=== PATIENT | male | born 1990 | race Caucasian/White ===

== ENCOUNTER 2019-03-21 18:03 | Emergency (ER) | payer SELFPAY ==
[2019-03-21 18:36] LABS: Absolute Lymphocytes (CBC) 1.6 K/uL (0.7-4.9); Basophils % 0.4 % (0-1.3); Hematocrit 43.6 % (39.6-49.0); Lymphocytes % 24.6 % (15.3-44.8); MPV 8.8 fL (7.6-11.3); RBC Red Blood Cell Count 5.39 M/uL (4.33-5.43)
[2019-03-21 18:53] LABS: Albumin 4.2 g/dL (3.4-5.0); Bilirubin Direct 0.2 mg/dL (0-0.2); Bilirubin Total 0.8 mg/dL (0.2-1.0); Potassium 3.7 mmol/L (3.5-5.1); Protein, Total 7.8 g/dL (6.4-8.2)
[2019-03-21 18:54] LABS: Protime INR 1.09
[2019-03-21] MEDS ORDERED: NA CHLORIDE 0.9% 1,000 ML ONE (19:13)
--- NOTE | 2019-03-21 19:25 | RAD REPORT ---
EXAM DESCRIPTION: CT - Abdomen Pelvis W Contrast - 03/21/2019 7:06 pm CLINICAL HISTORY: ABD PAIN, hematemesis, prior cholecystectomy COMPARISON: None. TECHNIQUE: Biphasic, helical CT imaging of the abdomen and pelvis was performed following 100 ml non -ionic IV contrast. No oral contrast administered. All CT scans are performed using dose optimization technique as appropriate and may include automated exposure control or mA/KV adjustment according to patient size. FINDINGS: No suspicious findings in the lung bases. The liver, spleen, and pancreas show no suspicious findings. No biliary tree dilatation. History aly cated prior cholecystectomy. There is a contracted gallbladder at the gallbladder fossa. Symmetric renal function is seen with no hydronephrosis or suspicious renal mass. No pyelonephritis o r acute parenchymal process. No bladder abnormalities. No adrenal abnormalities. No dilated bowel loops or bowel wall thickening. No appendicitis findings. Patient has small mesenter ic lymph nodes present in a few small periaortic lymph nodes. These are nonspecific. No free air, olivier e fluid or inflammatory stranding. No hernia, mass or bulky lymphadenopathy. No suspicious bony findings. IMPRESSION: Contrast enhanced CT abdomen and pelvis showing no acute or emergent finding. Small nonspecific mesenteric and periaortic lymph nodes.
--- NOTE | 2019-03-21 19:54 | ER ---
Nurse's Notes [facility] Name: Neil Reynolds Age: 28 yrs Sex: Male : 1990 Arrival Date: 03/21/2019 Time: 18:05 Bed 5 Private MD: Diagnosis: Nausea and vomiting;Hematemesis Presentation: 03/21 18:05 Presenting complaint: Patient states: He woke up an hour ago and saw blood in his bed. aj1 States that he thinks that it came from his mouth. Reports that he threw up 3 times after that and there was blood each time. Transition of care: patient was not received from another setting of care. Onset of symptoms was March 21, 2019. Risk Assessment: Do you want to hurt yourself or someone else? Patient reports no desire to harm self or others. Initial Sepsis Screen: Does the patient meet any 2 criteria? No. Patient's initial sepsis screen is negative. Does the patient have a suspected source of infection? No. Patient's initial sepsis screen is negative. Care prior to arrival: None. 18:05 Method Of Arrival: Ambulatory aj1 18:05 Acuity: MATY 3 aj1 Triage Assessment: 18:09 General: Appears in no apparent distress. comfortable, Behavior is calm, cooperative, aj1 appropriate for age. Pain: Complains of pain in abdomen Pain currently is 6 out of 10 on a pain scale. Neuro: Level of Consciousness is awake, alert, obeys commands. Cardiovascular: Patient's skin is warm and dry. Respiratory: Airway is patent Respiratory effort is even, unlabored, Respiratory pattern is regular, symmetrical. GI: Reports bloating, nausea, vomiting. Historical: - Allergies: 18:09 No Known Allergies; aj1 - Home Meds: 18:09 None [Active]; aj1 - PMHx: 18:09 None; aj1 - PSHx: 18:09 None; aj1 - Immunization history:: Flu vaccine is not up to date. - Social history:: Smoking status: Patient/guardian denies using tobacco. - Ebola Screening: : Patient denies travel to an Ebola-affected area in the 21 days before illness onset. Screenin:14 Abuse screen: Denies threats or abuse. Denies injuries from another. Nutritional sv screening: No deficits noted. Tuberculosis screening: No symptoms or risk factors identified. Fall Risk None identified. Assessment: 18:15 General: Appears in no apparent distress. uncomfortable, well groomed, well developed, sv Behavior is calm, cooperative, appropriate for age. Pain: Complains of pain in abdomen Quality of pain is described as pressure, Pain began 1 hour ago. Is continuous. Neuro: Level of Consciousness is awake, alert, obeys commands, Oriented to person, place, time, situation, Moves all extremities. Full function Gait is steady. Respiratory: Airway is patent Respiratory effort is even, unlabored, Respiratory pattern is regular, symmetrical. GI: Abdomen is distended, Abdomen is tender to palpation X 4 quads. Reports bloating. Derm: Skin is pink, warm \T\ dry. 19:21 General: Appears in no apparent distress. Behavior is calm, cooperative, appropriate ea for age. Pain: Complains of pain in abdomen. Neuro: Level of Consciousness is awake, alert, obeys commands, Oriented to person, place, time, situation. Respiratory: Airway is patent Respiratory effort is even, unlabored, Respiratory pattern is regular, symmetrical. GI: Abdomen is distended. Derm: Skin is pink, warm \T\ dry. 20:20 Reassessment: Patient and/or family updated on plan of care and expected duration. Pain ea level reassessed. Patient is alert, oriented x 3, equal unlabored respirations, skin warm/dry/pink. Discharge instruction given to patient, verbalized the understanding of instruction. Pt left ED ambulatory, accompanied by friend. Pt tolerating well. Vital Signs: 18:09 BP 134 / 90; Pulse 95; Resp 18; Temp 97.3; Pulse Ox 100% on R/A; Weight 86.18 kg (R); aj1 Height 5 ft. 5 in. (165.10 cm) (R); 18:43 BP 128 / 87; Pulse 87; Resp 16; Pulse Ox 98% ; sv 19:46 BP 126 / 79; Pulse 80; Resp 18; Pulse Ox 100% ; ea 20:15 BP 120 / 81; Pulse 78; Resp 18; Temp 97.6; Pulse Ox 98% ; ea 18:09 Body Mass Index 31.62 (86.18 kg, 165.10 cm) aj1 ED Course: 18:05 Patient arrived in ED. rg4 18:05 Martina Del Real FNP-C is [facility]. kb 18:05 Pranav Mukherjee MD is Attending Physician. kb 18:08 Triage completed. aj1 18:09 Arm band placed on Patient placed in an exam room. aj1 18:14 Carline Gates RN is Primary Nurse. sv 18:14 Patient has correct armband on for positive identification. Bed in low position. sv 18:15 Door closed. Head of bed elevated. sv 18:20 Inserted saline lock: 20 gauge in left antecubital area, using aseptic technique. Blood sv collected. Flushed left antecubital with 5 ml normal saline. 18:25 Awaiting lab results. sv 18:56 Primary Nurse role handed off by Carline Gates RN sv 18:58 Mary Chavez, RAGHU is Primary Nurse. ea 19:[address] nj 19:07 CT Abd/Pelvis - IV Contrast Only In Process Unspecified. EDMS 19:11 CT completed. Patient tolerated procedure well. Patient moved back from CT. vm2 20:10 IV discontinued, intact, bleeding controlled, No redness/swelling at site. Pressure ea dressing applied. 20:21 No provider procedures requiring assistance completed. ea Administered Medications: 19:14 Drug: NS 0.9% 1000 ml Route: IV; Rate: 1000 ml; Site: right antecubital; ea 20:00 Follow up: Response: No adverse reaction; IV Status: Completed infusion; IV Intake: ea 1000ml Intake: 20:00 IV: 1000ml; Total: 1000ml. ea Outcome: 19:53 Discharge ordered by MD. kb 20:21 Discharged to home ambulatory, with friend. ea 20:21 Condition: stable 20:21 Discharge instructions given to patient, Instructed on discharge instructions, follow up and referral plans. Demonstrated understanding of instructions, follow-up care. 20:22 Patient left the ED. ea Signatures: Dispatcher [employer] EDMS Martina Del Real, G[employer] RELATIONS SPECIALIST-Candida Levy, RN Carline Rivera, RN Pushpa Sherwood Nathan nj McGuire, Victoria 2 Mary Chavez RN RN ea
--- NOTE | 2019-03-21 19:54 | EDPHYS ---
Physician Documentation [facility] Name: Neil Reynolds Age: 28 yrs Sex: Male : 1990 Arrival Date: 03/21/2019 Time: 18:05 Bed 5 Private MD: ED Physician Pranav Mukherjee HPI: 03/21 19:01 This 28 yrs old Male presents to ER via Ambulatory with complaints of kb Vomiting. 19:01 The patient presents to the emergency department with nausea, vomiting, abdominal pain. kb Onset: The symptoms/episode began/occurred just prior to arrival. Possible causes: unknown. The symptoms are aggravated by nothing. The symptoms are alleviated by nothing. Associated signs and symptoms: Pertinent positives: abdominal pain, GI bleeding, nausea, vomiting. Severity of symptoms: At their worst the symptoms were moderate in the emergency department the symptoms have improved. The patient has not experienced similar symptoms in the past. The patient has not recently seen a physician. Pt reports he woke up at 1600 with blood on the sheets and pillow. States he vomited 3 times after that and there was blood in his vomit each time. Reports abd pain, "I feel ." . Historical: - Allergies: 18:09 No Known Allergies; aj1 - Home Meds: 18:09 None [Active]; aj1 - PMHx: 18:09 None; aj1 - PSHx: 18:09 None; aj1 - Immunization history:: Flu vaccine is not up to date. - Social history:: Smoking status: Patient/guardian denies using tobacco. - Ebola Screening: : Patient denies travel to an Ebola-affected area in the 21 days before illness onset. ROS: 19:00 Constitutional: Negative for fever, chills, and weight loss, Cardiovascular: Negative kb for chest pain, palpitations, and edema, Respiratory: Negative for shortness of breath, cough, wheezing, and pleuritic chest pain, Back: Negative for injury and pain, : Negative for injury, bleeding, discharge, and swelling, MS/Extremity: Negative for injury and deformity, Skin: Negative for injury, rash, and discoloration, Neuro: Negative for headache, weakness, numbness, tingling, and seizure. 19:00 Abdomen/GI: Positive for abdominal pain, nausea and vomiting, hematemesis. Exam: 19:00 Constitutional: This is a well developed, well nourished patient who is awake, alert, kb and in no acute distress. Head/Face: Normocephalic, atraumatic. ENT: Nares patent. No nasal discharge, no septal abnormalities noted. Tympanic membranes are normal and external auditory canals are clear. Oropharynx with no redness, swelling, or masses, exudates, or evidence of obstruction, uvula midline. Mucous membranes moist. Neck: Trachea midline, no thyromegaly or masses palpated, and no cervical lymphadenopathy. Supple, full range of motion without nuchal rigidity, or vertebral point tenderness. No Meningismus. Chest/axilla: Normal chest wall appearance and motion. Nontender with no deformity. No lesions are appreciated. Cardiovascular: Regular rate and rhythm with a normal S1 and S2. No gallops, murmurs, or rubs. Normal PMI, no JVD. No pulse deficits. Respiratory: Lungs have equal breath sounds bilaterally, clear to auscultation and percussion. No rales, rhonchi or wheezes noted. No increased work of breathing, no retractions or nasal flaring. Back: No spinal tenderness. No costovertebral tenderness. Full range of motion. Skin: Warm, dry with normal turgor. Normal color with no rashes, no lesions, and no evidence of cellulitis. MS/ Extremity: Pulses equal, no cyanosis. Neurovascular intact. Full, normal range of motion. Neuro: Awake and alert, GCS 15, oriented to person, place, time, and situation. Cranial nerves II-XII grossly intact. Motor strength 5/5 in all extremities. Sensory grossly intact. Cerebellar exam normal. Normal gait. 19:00 Abdomen/GI: Inspection: distension, that is mild, Bowel sounds: normal, in all quadrants, Palpation: soft, in all quadrants, moderate abdominal tenderness, in all quadrants. Vital Signs: 18:09 BP 134 / 90; Pulse 95; Resp 18; Temp 97.3; Pulse Ox 100% on R/A; Weight 86.18 kg (R); aj1 Height 5 ft. 5 in. (165.10 cm) (R); 18:43 BP 128 / 87; Pulse 87; Resp 16; Pulse Ox 98% ; sv 19:46 BP 126 / 79; Pulse 80; Resp 18; Pulse Ox 100% ; ea 20:15 BP 120 / 81; Pulse 78; Resp 18; Temp 97.6; Pulse Ox 98% ; ea 18:09 Body Mass Index 31.62 (86.18 kg, 165.10 cm) aj1 MDM: 18:11 Patient medically screened. kb 19:00 Data reviewed: vital signs, nurses notes. Data interpreted: Pulse oximetry: on room air kb is 98 %. Interpretation: normal. 19:51 Counseling: I had a detailed discussion with the patient and/or guardian regarding: the kb historical points, exam findings, and any diagnostic results supporting the discharge/admit diagnosis, lab results, radiology results, the need for outpatient follow up, a family practitioner, to return to the emergency department if symptoms worsen or persist or if there are any questions or concerns that arise at home. 03/21 18:18 Order name: Basic Metabolic Panel; Complete Time: 18:54 kb 03/21 18:18 Order name: CBC with Diff; Complete Time: 18:41 kb 03/21 18:18 Order name: Hepatic Function; Complete Time: 18:54 kb 03/21 18:18 Order name: Lipase; Complete Time: 18:54 kb 03/21 18:34 Order name: Protime (+inr); Complete Time: 18:58 kb 03/21 18:34 Order name: Ptt, Activated; Complete Time: 18:58 kb 03/21 18:18 Order name: IV Saline Lock; Complete Time: 18:25 kb 03/21 18:18 Order name: Labs collected and sent; Complete Time: 18:25 kb 03/21 18:54 Order name: CT Abd/Pelvis - IV Contrast Only; Complete Time: 19:33 kb Administered Medications: 19:14 Drug: NS 0.9% 1000 ml Route: IV; Rate: 1000 ml; Site: right antecubital; ea 20:00 Follow up: Response: No adverse reaction; IV Status: Completed infusion; IV Intake: ea 1000ml Disposition: 03/21/19 19:53 Discharged to Home. Impression: Nausea and vomiting, Hematemesis. - Condition is Stable. - Discharge Instructions: Hematemesis, Nausea and Vomiting, Adult, [id number]. - Medication Reconciliation Form, Thank You Letter, Antibiotic Education, Prescription Opioid Use, Work release form, Family Work Release form. - Follow up: Emergency Department; When: As needed; Reason: Worsening of condition. Follow up: Private Physician; When: 2 - 3 days; Reason: Recheck today's complaints, Continuance of care, Re-evaluation by your physician. Addendum: 03/24/2019 07:00 Co-signature as Attending Physician, Pranav Mukherjee MD. r n Signatures: Dispatcher [employer] EDMS Gt Martina, FORENSIC NURSE-C FORENSIC NURSE-Ckb Candida Larkin, RN RN aj1 Pranav Mukherjee MD MD rn Antunez, Elena, RN RN ea Corrections: (The following items were deleted from the chart) 03/21 20:22 19:53 03/21/2019 19:53 Discharged to Home. Impression: Nausea and vomiting; ea Hematemesis. Condition is Stable. Discharge Instructions: Hematemesis, Nausea and Vomiting, Adult, [id number]. Forms are Medication Reconciliation Form, Thank You Letter, Antibiotic Education, Prescription Opioid Use. Follow up: Emergency Department; When: As needed; Reason: Worsening of condition. Follow up: Private Physician; When: 2 - 3 days; Reason: Recheck today's complaints, Continuance of care, Re-evaluation by your physician. kb
[2019-03-21 20:33] VITALS: BP 120/81; TEMP 97.6; O2SAT 98
== END 2019-03-21 20:22 | disposition home or self-care (01) ==
LOC: ER 18:03
DX: K92.0 Hematemesis (principal)
CPT/HCPCS: 36415; 74177; 80048; 80076; 83690; 85025; 85610; 85730; 96360; 99284; J7030; Q9967